=== PATIENT | male | born 1965 | race Caucasian/White ===

== ENCOUNTER 2019-04-22 12:56 | Inpatient (IN) | payer OTHER, SELFPAY ==
[~2019-04-22 12:56] MED LIST: ISOVUE-370 76%-LOCM 1 ML ONE
[2019-04-22 13:47] LABS: #Basophils 0.1 thou/uL (0.0-0.2); #Eosinphils 0.1 thou/uL (0.0-0.7); #Lymphocytes 2.2 thou/uL (1.20-3.40); #Monocytes 0.7 thou/uL (0.11-0.59); %Basophils 1.2 % (0.0-1.0); %Eosinophils 0.7 % (0.0-10.0); %Lymphocytes 27.6 % (21.0-51.0); %Monocytes 8.2 % (0.0-10.0); %Neutrophils 62.3 % (42.0-75.0); Hemoglobin 15.3 g/dL (14.0-18.0); Mean Corpuscular HGB CONC 33.7 g/dL (32.0-36.0); Mean Corpuscular Hemoglobin 30.8 pg (27.0-31.0); Mean Corpuscular Volume 91.3 fL (78.0-98.0); Mean Platelet Volume 7.7 fL (7.4-10.4); Platelet Count 177 thou/uL (130-400); RBC Distribution Width 13.3 % (11.5-14.5); Red Blood Cell (RBC) Count 4.98 mill/uL (4.70-6.10)
[2019-04-22 14:11] LABS: ALT (SGPT) 35 U/L (8-55); AST (SGOT) 26 U/L (5-34); Alkaline Phosphatase 58 U/L (40-110); Anion Gap 16 mmol/L (10-20); BUN (Urea Nitrogen) 14 mg/dL (8.4-25.7); Bilirubin, Total 1.3 mg/dL (0.2-1.2); Calc. Creatinine Clearance 0 mL/min (70-130); Calcium 9.1 mg/dL (7.8-10.44); Carbon Dioxide 19 mmol/L (22-29); Chloride 103 mmol/L (98-107); Estimated GFR-MDRD 64; Globulin 3.4 g/dL (2.4-3.5); Glucose 98 mg/dL (70-105); Potassium 4.1 mmol/L (3.5-5.1); Protein, Total 7.4 g/dL (6.0-8.3); Sodium 134 mmol/L (136-145)
--- NOTE | 2019-04-22 14:22 | CT ---
CT ANGIOGRAM THORAX WITH CONTRAST: (CTA pulmonary angiogram) DATE: 04/22/2019 HISTORY: 53-year-old male with dyspnea TECHNIQUE: IV injection of iodinated contrast. Scan acquisition timing attempted to coincide with iodinated contrast bolus reaching maximal density in pulmonary arteries. 3-D MIP reconstructions. FINDINGS: Pulmonary thromboembolism: None. Lungs: No consolidation or edema. Pneumothorax: None. Pleural effusion: None. Heart: Mild cardiomegaly, including left ventricular chamber dilation. Thoracic aorta: No aneurysm. No contrast within the lumen: Unable to evaluate for dissection. IMPRESSION: 1. No pulmonary thromboembolism. 2. Cardiomegaly.
[2019-04-22] MEDS ORDERED: Nitroglycerin 2% Ointment 1 INCH/1 GM Packet ONE (14:36)
[2019-04-22] MEDS ORDERED: Aspirin Chewable 81 MG TAB ONE ×2 (14:36→15:43)
[2019-04-22] MEDS ORDERED: Furosemide 40 MG/4 ML VIAL ONE (15:43)
[2019-04-22] MEDS: Furosemide 40 MG/4 ML VIAL SLOW IVP SCH ×2 (22:24→23:29)
[2019-04-23] MEDS ORDERED: Ondansetron ODT 4 MG TAB PO PRN (02:13)
[2019-04-23] MEDS ORDERED: Ondansetron PF 4 MG/2 ML Vial IVP PRN (02:13)
[2019-04-23] MEDS ORDERED: Senokot S 8.6-50 MG TAB PO PRN (02:13)
[2019-04-23] MEDS ORDERED: Calcium Carbonate 500 MG ChewTAB PO PRN (02:13)
[2019-04-23] MEDS ORDERED: Acetaminophen 325 MG TAB PO PRN (02:13)
--- NOTE | 2019-04-23 02:32 | HP ---
CHIEF COMPLAINT: Shortness of breath. PRIMARY CARE PHYSICIAN: None. HISTORY OF PRESENT ILLNESS: The patient is a 53-year-old male with hypertension, presented to the emergency room with worsening shortness of breath that is ongoing for the last few months. Over the last 1 to 2 weeks, the shortness of breath got worse. He now gets short of breath on mild exertion. He is also unable to lie down flat. He noticed bilateral lower extremity swelling. He denies any history of congestive heart failure. No chest pain, palpitations, lightheadedness, dizziness, or syncope reported. He denies previous cardiac workup. He states that 9 years ago, he had some viral infection of his heart. He does not take any medications at home. PAST MEDICAL HISTORY: 1. Hypertension. 2. Viral infection of the heart 9 years ago per patient report. PAST SURGICAL HISTORY: Reviewed with the patient and none. ALLERGIES: THE PATIENT IS ALLERGIC TO PENICILLIN AND SULFA. CURRENT HOME MEDICATIONS: Reviewed with the patient and none. SOCIAL HISTORY: The patient currently lives at home with his family. He has a history of heavy alcohol abuse in the past. Over the last 1 month, he has been drinking socially. He denies any smoking or drug use. FAMILY HISTORY: Negative for heart disease. REVIEW OF SYSTEMS: All other review of systems was reviewed and were found negative. PHYSICAL EXAMINATION: VITAL SIGNS: Temperature 99.4, respirations of 18, pulse rate of 127 on ER arrival, blood pressure of 163/114, O2 saturation 98% on room air. GENERAL: A 53-year-old male, in no apparent distress. His shortness of breath has improved with IV Lasix in the emergency room. HEENT: Head, atraumatic and normocephalic. Sclerae anicteric. Moist mucous membranes. No oral lesion. NECK: Supple. No JVD appreciated. No carotid bruit. LUNGS: Showed diminished air entry at bilateral bases. No significant accessory muscle use. There was scattered rhonchi. No rales. HEART: S1, S2 present. Regular rate and rhythm. No rubs or gallops. No heaves or pulsation. ABDOMEN: Soft, obese. Bowel sounds present. No rebound or guarding. No costovertebral angle tenderness. EXTREMITIES: 1+ edema in bilateral lower extremities. SKIN: Warm and dry. LYMPH NODES: No palpable lymph nodes in the neck. PERIPHERAL VASCULAR: Radial pulses palpable bilaterally. MUSCULOSKELETAL: No joint swelling or tenderness. SKIN: Warm and dry. LABORATORY FINDINGS: BNP 1637. Troponin negative. Total bilirubin 1.3. Sodium 134, potassium 4.1. WBC 8.0 with hemoglobin 15.3, platelet 177. CT angiogram of the chest by my review was negative for pulmonary embolism. It showed cardiomegaly. EKG by my review showed sinus tachycardia with left axis deviation, left anterior fascicular block with nonspecific ST-T wave changes. Medication administered in the emergency room, Lasix 40 mg IV and aspirin 324 mg x1. IMPRESSION: 1. Acute congestive heart failure exacerbation (new onset). 2. Hypertension, uncontrolled. 3. Obesity with a BMI of 37.3. 4. Chronic kidney disease, stage 2. 5. Hyponatremia. 6. Abnormal LFTs probably secondary to passive hepatic congestion. 7. History of alcohol abuse in the past. 8. Sulfa and penicillin allergy. PLAN: The patient will be monitored on the telemetry unit. Echocardiogram will be obtained. We will add fluid restriction. We will check labs on a daily basis. We will add low-dose beta blockers. Heart failure education. Plan of care was discussed with the patient in detail. He stated understanding. Job ID: [id number]
[2019-04-23 05:30] LABS: Troponin I 0.013 ng/mL (< 0.028)
[2019-04-23] MEDS: Furosemide 20 MG/2 ML VIAL SLOW IVP SCH ×2 (05:37→14:07)
[2019-04-23 05:43] LABS: Anion Gap 14 mmol/L (10-20); BUN (Urea Nitrogen) 14 mg/dL (8.4-25.7); Calc. Creatinine Clearance 132 mL/min (70-130); Calcium 8.7 mg/dL (7.8-10.44); Carbon Dioxide 23 mmol/L (22-29); Chloride 103 mmol/L (98-107); Estimated GFR-MDRD 72; Glucose 80 mg/dL (70-105); Potassium 3.8 mmol/L (3.5-5.1); Sodium 136 mmol/L (136-145)
[2019-04-23] MEDS ORDERED: Carvedilol 3.125 MG TAB PO SCH (09:00)
[2019-04-23] MEDS: Lisinopril 2.5 MG TAB PO SCH (09:17)
[2019-04-23] MEDS: Aspirin 325 MG TAB PO SCH (09:18)
[2019-04-23] MEDS: Enoxaparin Sodium 40 MG/0.4 ML SYRINGE SC SCH (09:18)
--- NOTE | 2019-04-23 15:46 | PDOC.HOSPP ---
- Subjective Encounter Date: 04/23/19 Encounter Time: 15:44 Subjective: Mr. Keys was seen today in follow-up of new onset CHF. He does not have any complaints. He wants to go home. - Objective Vital Signs & Weight: Vital Signs (12 hours) Temp Pulse Resp BP Pulse Ox 04/23/19 11:46 98.1 F 91 16 108/89 97 04/23/19 09:17 100 04/23/19 08:00 93 L 04/23/19 07:35 98.5 F 100 16 115/100 H 93 L 04/23/19 04:00 97.6 F 96 20 111/89 95 Weight Weight 256 lb 6 oz I&O: 04/22/19 04/23/19 04/24/19 06:59 06:59 06:59 Output Total 1300 650 Balance -1300 -650 Result Diagrams: 04/22/19 13:37 04/23/19 04:56 Hospitalist ROS - Medication Medications: Active Medications Generic Name Dose Route Start Last Admin Trade Name Krystle PRN Reason Stop Dose Admin Aspirin 325 mg 04/23/19 09:00 04/23/19 09:18 Aspirin PO 325 mg DAILY EDER Administration Enoxaparin Sodium 40 mg 04/23/19 09:00 04/23/19 09:18 Lovenox SC 40 mg 0900 EDER Administration Furosemide 20 mg 04/23/19 06:00 04/23/19 14:07 Lasix SLOW IVP 20 mg 0600,1400 EDER Administration Lisinopril 2.5 mg 04/23/19 09:00 04/23/19 09:17 Zestril PO 2.5 mg DAILY EDER Administration Sodium Chloride 10 ml 04/23/19 02:13 04/23/19 05:38 Flush - Normal Saline IVF 10 ml PRN PRN Administration Saline Flush - Exam Eye: PERRL, anicteric sclera Heart: RRR, no murmur (+ S4), no rubs, normal peripheral pulses Respiratory: CTAB, no wheezes, no rales, no ronchi, normal chest expansion, no tachypnea, normal percussion Gastrointestinal: soft, non-tender, non-distended, normal bowel sounds, no palpable masses, no hepatomegaly, no splenomegaly Extremities: no cyanosis, no clubbing, no edema Hosp A/P (1) Acute heart failure Code(s): I50.9 - HEART FAILURE, UNSPECIFIED Status: Acute Qualifiers: Heart failure type: unspecified Qualified Code(s): I50.9 - Heart failure, unspecified - Plan * Acute CHF- ? type- awaiting Echo result * Continue Carvediolol, and Lisinopril *
[2019-04-23] MEDS: Carvedilol 3.125 MG TAB PO SCH (17:25)
[2019-04-24 05:13] VITALS: BMI 36.1
[2019-04-24 05:34] LABS: Anion Gap 13 mmol/L (10-20); BUN (Urea Nitrogen) 13 mg/dL (8.4-25.7); Calc. Creatinine Clearance 118 mL/min (70-130); Carbon Dioxide 25 mmol/L (22-29); Chloride 104 mmol/L (98-107); Estimated GFR-MDRD 66; Glucose 91 mg/dL (70-105); Potassium 3.7 mmol/L (3.5-5.1); Sodium 138 mmol/L (136-145)
[2019-04-24] MEDS: Furosemide 20 MG/2 ML VIAL SLOW IVP SCH (06:00)
[2019-04-24] MEDS: Enoxaparin Sodium 40 MG/0.4 ML SYRINGE SC SCH (08:53)
[2019-04-24] MEDS: Lisinopril 2.5 MG TAB PO SCH (08:53)
[2019-04-24] MEDS: Aspirin 325 MG TAB PO SCH (08:53)
[2019-04-24] MEDS: Carvedilol 3.125 MG TAB PO SCH ×2 (08:53→16:14)
--- NOTE | 2019-04-24 15:04 | PDOC.HOSPP ---
- Subjective Encounter Date: 04/24/19 Encounter Time: 15:02 Subjective: Mr. Keys was seen today in follow-up of CHF. He does not have any complaints. - Objective Vital Signs & Weight: Vital Signs (12 hours) Temp Pulse Resp BP Pulse Ox 04/24/19 11:22 97.6 F 100 22 H 120/96 H 95 04/24/19 08:53 105 H 04/24/19 08:48 96 04/24/19 08:35 118/96 H 04/24/19 07:35 98.9 F 105 H 20 96 04/24/19 04:00 97.8 F 86 16 98/85 92 L Weight Weight 251 lb 14.4 oz I&O: 04/23/19 04/24/19 04/25/19 06:59 06:59 06:59 Intake Total 1252 Output Total 6497 8837 Balance -7277 -5342 Result Diagrams: 04/22/19 13:37 04/24/19 04:45 Hospitalist ROS - Medication Medications: Active Medications Generic Name Dose Route Start Last Admin Trade Name Freq PRN Reason Stop Dose Admin Aspirin 325 mg 04/23/19 09:00 04/24/19 08:53 Aspirin PO 325 mg DAILY EDER Administration Carvedilol 3.125 mg 04/23/19 17:00 04/24/19 08:53 Coreg PO 3.125 mg BID-WM EDER Administration Enoxaparin Sodium 40 mg 04/23/19 09:00 04/24/19 08:53 Lovenox SC 40 mg 0900 EDER Administration Lisinopril 2.5 mg 04/23/19 09:00 04/24/19 08:53 Zestril PO Not Given DAILY EDER Sodium Chloride 10 ml 04/23/19 02:13 04/23/19 05:38 Flush - Normal Saline IVF 10 ml PRN PRN Administration Saline Flush - Exam Eye: PERRL, anicteric sclera Heart: RRR, no murmur, no gallops, no rubs, normal peripheral pulses Respiratory: CTAB, no wheezes, no rales, no ronchi, normal chest expansion Gastrointestinal: soft, non-tender, non-distended, normal bowel sounds, no palpable masses, no hepatomegaly, no splenomegaly Extremities: no cyanosis, no clubbing, no edema Hosp A/P (1) Acute heart failure Code(s): I50.9 - HEART FAILURE, UNSPECIFIED Status: Acute Qualifiers: Heart failure type: unspecified Qualified Code(s): I50.9 - Heart failure, unspecified - Plan * Clinically stable, He continues with intermittent ectopy * Acute CHF- ? type- awaiting Echo result- he is clinically euvolemic * Continue Carvediolol, and Lisinopril * Will change Lasix to prn
--- NOTE | 2019-04-25 08:46 | PDOC.HOSPP ---
- Subjective Encounter Date: 04/25/19 Encounter Time: 08:44 Subjective: Mr. Keys was seen today in follow-up of CHF exacerbation. He does not have any complaints this morning. - Objective Vital Signs & Weight: Vital Signs (12 hours) Temp Pulse Resp BP Pulse Ox 04/25/19 07:45 98.9 F 92 20 107/85 97 04/25/19 04:00 97.7 F 91 18 110/88 97 Weight Weight 254 lb 6.4 oz I&O: 04/24/19 04/25/19 04/26/19 06:59 06:59 06:59 Intake Total 1252 1300 Output Total 3825 950 Balance -2573 350 Result Diagrams: 04/22/19 13:37 04/24/19 04:45 Hospitalist ROS - Medication Medications: Active Medications Generic Name Dose Route Start Last Admin Trade Name Freq PRN Reason Stop Dose Admin Aspirin 325 mg 04/23/19 09:00 04/24/19 08:53 Aspirin PO 325 mg DAILY EDER Administration Carvedilol 3.125 mg 04/23/19 17:00 04/24/19 16:14 Coreg PO 3.125 mg BID-WM EDER Administration Enoxaparin Sodium 40 mg 04/23/19 09:00 04/24/19 08:53 Lovenox SC 40 mg 0900 EDER Administration Lisinopril 2.5 mg 04/23/19 09:00 04/24/19 08:53 Zestril PO Not Given DAILY EDER Sodium Chloride 10 ml 04/23/19 02:13 04/23/19 05:38 Flush - Normal Saline IVF 10 ml PRN PRN Administration Saline Flush - Exam Eye: PERRL, anicteric sclera Heart: RRR (mildly tachycardic), no murmur, no gallops, no rubs, normal peripheral pulses Respiratory: CTAB, no wheezes, no rales, no ronchi, normal chest expansion Gastrointestinal: soft, non-tender, non-distended, normal bowel sounds, no palpable masses, no hepatomegaly Extremities: no cyanosis, no clubbing, no edema Hosp A/P (1) Acute heart failure Code(s): I50.9 - HEART FAILURE, UNSPECIFIED Status: Acute Qualifiers: Heart failure type: unspecified Qualified Code(s): I50.9 - Heart failure, unspecified (2) Acute systolic congestive heart failure, NYHA class 2 Code(s): I50.21 - ACUTE SYSTOLIC (CONGESTIVE) HEART FAILURE Status: Acute - Plan * Acute systolic heart failure CHF- his EF was 10-15% * Discussed with the patient- will consult Cardiology * Continue Carvediolol, and Lisinopril * Lasix is now PRN
[2019-04-25] MEDS: Carvedilol 3.125 MG TAB PO SCH ×2 (09:23→17:46)
[2019-04-25] MEDS: Lisinopril 2.5 MG TAB PO SCH (09:23)
[2019-04-25] MEDS: Enoxaparin Sodium 40 MG/0.4 ML SYRINGE SC SCH (09:24)
[2019-04-25] MEDS: Aspirin 325 MG TAB PO SCH (09:24)
[2019-04-25] MEDS ORDERED: Communication Order-Pharmacy FS SCH (10:45)
--- NOTE | 2019-04-25 11:03 | CON ---
DATE OF CONSULTATION: HISTORY OF PRESENT ILLNESS: A 53-year-old gentleman with a history of cardiomyopathy, who presents with increasing dyspnea and lower extremity swelling. The patient states that around 2012, he suffered a myocardial infarction, and he was seeing Dr. Stuart Borges. He underwent a cardiac catheterization. He was apparently found to have normal coronary arteries with left ventricular dysfunction. The patient has been doing reasonably well until recently. He started noting an increasing dyspnea and lower extremity swelling. The patient denies having any chest discomfort. PAST MEDICAL HISTORY: Significant for, 1. Cardiomyopathy. 2. History of myocardial infarction. PAST SURGICAL HISTORY: None. MEDICATIONS: On admission, none. SOCIAL HISTORY: He is a nonsmoker. He is a former user of heavy use of alcohol. FAMILY HISTORY: No strong family history of heart disease. ALLERGIES: HE IS ALLERGIC TO PENICILLIN AND SULFA DRUGS. REVIEW OF SYSTEMS: Ten-point system otherwise unremarkable. PHYSICAL EXAMINATION: GENERAL: Obese gentleman, in no acute distress. VITAL SIGNS: BLOOD pressure 107/85. NECK: No jugular venous distention. LUNGS: Clear to auscultation. HEART: Regular rate and rhythm. Normal S1, S2. No murmurs. ABDOMEN: Distended. EXTREMITIES: Showed no edema. VASCULAR: Radial pulses are 2+. LABORATORY RESULTS: Sodium 138, potassium 3.7, chloride 104, bicarbonate 25, BUN 13, creatinine 1.1. Troponin 0.013. His white blood cell count is 8.0, hemoglobin 15.3, hematocrit 44.4, platelets 177. IMAGING STUDIES: His EKG revealed sinus tachycardia, left anterior fascicular block, poor R-wave progression. Echocardiogram revealed severe decreased left ventricular systolic function with an estimated ejection fraction 15% to 20%. IMPRESSION: 1. Congestive heart failure. 2. Cardiomyopathy. 3. Ventricular tachycardia. 4. History of ethanol abuse. This gentleman presents with congestive heart failure. At this time, we will diurese the patient. The patient has been treated with Lasix. At this time, I would highly recommend this patient be placed on Entresto and Coreg. I would also recommend repeat cardiac catheterization. The risks of the procedure including SD, bleeding, stroke, cardiac arrhythmia, and cardiac have been explained. The patient understands these risks and wished to proceed. PLAN: 1. Proceed with cardiac catheterization. 2. Start Entresto. 3. EP consultation for ventricular tachycardia. Job ID: [id number]
[2019-04-25] MEDS ORDERED: Lidocaine 1% (PF) 30 ML VIAL ONE (13:49)
[2019-04-25] MEDS ORDERED: Midazolam HCl 2 mg/2 ml Vial ONE (14:38)
[2019-04-25] MEDS ORDERED: Metoprolol Tartrate 5 MG/5 ML VIAL ONE (14:43)
[2019-04-25] MEDS ORDERED: Sodium Chloride 0.9% 1,000 ML IV SCH (16:45)
[2019-04-25] MEDS ORDERED: Iopamidol 370 76% 50 ML VIAL FS ONE (20:45)
[2019-04-25] MEDS ORDERED: Iopamidol 370 76% 100 ML VIAL ONE (20:45)
[2019-04-26] MEDS ORDERED: Spironolactone 25 MG TAB PO SCH (09:00)
[2019-04-26] MEDS ORDERED: Carvedilol 3.125 MG TAB PO SCH (09:00)
[2019-04-26] MEDS ORDERED: Amiodarone 200 MG TAB PO SCH (13:00)
[2019-04-26] MEDS: Aspirin 325 MG TAB PO SCH (14:31)
[2019-04-26] MEDS: Enoxaparin Sodium 40 MG/0.4 ML SYRINGE SC SCH (14:34)
[2019-04-26] MEDS: Carvedilol 3.125 MG TAB PO SCH ×2 (14:41→18:04)
--- NOTE | 2019-04-26 16:42 | PDOC.HOSPP ---
- Subjective Encounter Date: 04/26/19 Encounter Time: 16:40 Subjective: Ms. Keys was seen today in follow-up of new onset CHF. He does not have any complaints. - Objective Vital Signs & Weight: Vital Signs (12 hours) Temp Pulse Resp BP Pulse Ox 04/26/19 08:10 97.9 F 99 18 121/98 H 95 04/26/19 07:40 95 Weight Weight 260 lb I&O: 04/25/19 04/26/19 04/27/19 06:59 06:59 06:59 Intake Total 1300 Output Total 950 900 Balance 350 -900 Result Diagrams: 04/22/19 13:37 04/24/19 04:45 Hospitalist ROS - Medication Medications: Active Medications Generic Name Dose Route Start Last Admin Trade Name Freq PRN Reason Stop Dose Admin Aspirin 325 mg 04/23/19 09:00 04/26/19 14:31 Aspirin PO 325 mg DAILY EDER Administration Enoxaparin Sodium 40 mg 04/23/19 09:00 04/26/19 14:34 Lovenox SC 40 mg 0900 EDER Administration Sodium Chloride 10 ml 04/23/19 02:13 04/23/19 05:38 Flush - Normal Saline IVF 10 ml PRN PRN Administration Saline Flush - Exam Eye: PERRL, anicteric sclera Heart: RRR, no murmur, no gallops, no rubs, normal peripheral pulses Respiratory: CTAB, no wheezes, no rales, no ronchi, normal chest expansion, no tachypnea Gastrointestinal: soft, non-tender, non-distended, normal bowel sounds, no palpable masses, no hepatomegaly, no splenomegaly Extremities: no cyanosis, no clubbing, no edema Hosp A/P (1) Acute heart failure Code(s): I50.9 - HEART FAILURE, UNSPECIFIED Status: Acute Qualifiers: Heart failure type: unspecified Qualified Code(s): I50.9 - Heart failure, unspecified (2) Acute systolic congestive heart failure, NYHA class 2 Code(s): I50.21 - ACUTE SYSTOLIC (CONGESTIVE) HEART FAILURE Status: Acute - Plan * Acute systolic heart failure CHF- his EF was 10-15% * He is s/p Cardiac cath- and there was no evidence of coronary artery disease * Continue Carvediolol, Lisinopril was discontinued, and Entresto started * Ventricular arrhythmias- he has been started on Amiodarone * Lasix PRN
[2019-04-26] MEDS: Amiodarone 200 MG TAB PO SCH ×2 (18:04→21:38)
--- NOTE | 2019-04-26 18:34 | CON ---
DATE OF CONSULTATION: 04/26/2019 HISTORY OF PRESENT ILLNESS: I am seeing Mr. Keys at our [facility] Telemetry Floor as an Electrophysiology bi consultant regarding his ventricular tachyarrhythmias and dilated cardiomyopathy. His problems are; 1. Chronic systolic congestive heart failure with dilated cardiomyopathy. a. Current admission with acute heart failure exacerbation. b. Severely reduced left ventricular ejection fraction of 15% to 20% on echo, 04/23/2019. c. Left heart catheterization on 04/22/2019, showed normal coronary arteries. Left ventricular ejection fraction about 10%. d. Remote history of mild left ventricular dysfunction on echo in 2010, revealed left ventricular ejection fraction of 45% to 50%. e. History of viral infection 9 years ago. 2. History of hypertension. ALLERGIES: 1. PENICILLIN. 2. SULFA. MEDICATIONS: Medications at home included none. SUBJECTIVE: Mr. Keys is here admitted on the , with signs of fluid overload and acute heart failure. He has been experiencing this for last couple of months. He does not seek medical attention up until now. For last 1 to 2 weeks, his dyspnea gets worse. He gets very short of breath with exertion. He is unable to lay flat, and his lower extremities were swelling up. He denies chest pains. No fever, chills, or cough. He was evaluated by Dr. Raphael with an echo and a heart catheterization demonstrating normal coronary arteries, but severely reduced LVEF. He has been diuresed and is feeling better now, able to lay flat, feels somewhat back to normal. On telemetry, there are some runs of nonsustained wide-complex arrhythmia. I was consulted for further management of his arrhythmia status. REVIEW OF SYSTEMS: Rest of 12-point review of systems is otherwise unremarkable. PAST MEDICAL HISTORY: As above. He has had issues with dilated cardiomyopathy back in 2005. Last documented echocardiogram prior to this admission was in 2010, at 45% to 50%. He has not been following up with a german teacher in the interim since 2011. He was not on any medications. 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 He has history of heavy alcohol abuse in the past, but moderated the last month. Denies smoking or drug use. FAMILY HISTORY: Negative for heart disease. OBJECTIVE DATA: VITAL SIGNS: Blood pressure 120/98, heart rate 99, respirations 18, temperature 97.9 degrees Fahrenheit. PHYSICAL EXAMINATION: GENERAL: Alert and oriented man with elevated BMI, in no apparent distress. NECK: Supple. Jugular veins are not distended. CHEST: Coarse. No crackles. HEART: Sounds are regular to rate and rhythm. No murmur or gallop. ABDOMEN: Benign. Bowel sounds positive. EXTREMITIES: Lower extremities without edema, clubbing, or cyanosis. NEUROLOGIC: The patient is nonfocal. MUSCULOSKELETAL: Without joint swelling or deformity. SKIN: Without rash. DATABASE: EKGs reviewed initially revealing sinus rhythm, rate of 122 beats per minute. QRS is [address]-T changes. Left anterior fascicular block. Left atrial enlargement is seen. The subsequent EKGs are similar. Telemetry strips do reveal runs of wide-complex arrhythmia. Impression is likely ventricular tachycardia. LABORATORY DATA: White cell count is 8.0, hemoglobin 15.3, platelet count is 177. Sodium 138, potassium 3.7, BUN is 13, creatinine is 1.16. BNP is 1637. Troponin I of 0.01 and 0.013 consecutively. TSH is 1.4789, in normal range. Echocardiogram again reveals moderate left atrial enlargement, mild mitral regurgitation and tricuspid regurgitation, LVEF 15% to 20%, mild enlargement of left ventricular size. ASSESSMENT AND PLAN: Mr. Keys is a very pleasant 53-year-old man with history of cardiomyopathy, although in the past, it was only to a mild degree. He has not been on any heart failure medications and was not under attention for german teacher for last 7 years. Now, he was admitted with a full-blown heart failure with fluid overload, and he has nonsustained ventricular arrhythmias on the monitor. He also has severely reduced left ventricular ejection fraction with normal coronary arteries on the workup. My plan is: 1. His ventricular arrhythmia risk is clearly very high. On the other hand, he has not been on any heart failure medication prior to admit. I think it is reasonable to give him a trial of optimized heart failure management as Dr. Raphael already initiated including Entresto, likely beta-peri as tolerated. His left ventricular systolic function likely needs to be re-assessed in about 3 months on optimal management, and if left ventricular ejection fraction is less than or equal to 35%, I would consider a prophylactic implantable cardioverter-defibrillator implant at that time. 2. Nonsustained ventricular arrhythmias. So far, minimally symptomatic, but due to frequency, it is reasonable to consider suppression with amiodarone therapy. Risks and benefits detailed to the patient's family. 3. History of EtOH abuse. Cessation of any EtOH consumption is necessary. 4. He would likely benefit from LifeVest therapy on discharge. Discussed with Dr. Raphael. Thank you again for letting me to participate in the care of this patient. Job ID: [id number] [facility]
[2019-04-26] MEDS ORDERED: Sacubitril 24.5 MG/Valsartan 25.5 MG TABLET PO SCH (21:00)
[2019-04-26] MEDS: Sacubitril 24.5 MG/Valsartan 25.5 MG TABLET PO SCH (21:49)
[2019-04-27] MEDS ORDERED: Spironolactone 25 MG TAB PO SCH (08:00)
[2019-04-27] MEDS ORDERED: Amiodarone 200 MG TAB PO SCH ×2 (09:00)
[2019-04-27] MEDS: Aspirin 325 MG TAB PO SCH (09:07)
[2019-04-27] MEDS: Carvedilol 3.125 MG TAB PO SCH (09:07)
[2019-04-27] MEDS: Enoxaparin Sodium 40 MG/0.4 ML SYRINGE SC SCH (09:08)
[2019-04-27] MEDS: Sacubitril 24.5 MG/Valsartan 25.5 MG TABLET PO SCH (09:09)
[2019-04-27 09:48] VITALS: TEMP 97.4
[2019-04-27 11:42] VITALS: BP 114/80
--- NOTE | 2019-04-27 12:27 | PDOC.HOSPP ---
- Subjective Encounter Date: 04/27/19 Encounter Time: 12:25 Subjective: Mr. Keys was seen today in follow-up of new onset CHF. He does not have any complaints. - Objective Vital Signs & Weight: Vital Signs (12 hours) Temp Pulse Pulse Pulse Resp BP BP 04/27/19 11:40 97.4 F L 91 16 04/27/19 11:25 83 77 114/80 101/78 04/27/19 08:00 97.4 F L 81 17 04/27/19 04:00 97.3 F L 73 18 BP BP Pulse Ox Pulse Ox Pulse Ox 04/27/19 11:40 114/80 99 04/27/19 11:25 100 100 04/27/19 08:00 104/76 98 04/27/19 04:00 94/65 95 Weight Weight 258 lb I&O: 04/26/19 04/27/19 04/28/19 06:59 06:59 06:59 Intake Total 500 Output Total 900 Balance -900 500 Result Diagrams: 04/22/19 13:37 04/24/19 04:45 Hospitalist ROS - Medication Medications: Active Medications Generic Name Dose Route Start Last Admin Trade Name Freq PRN Reason Stop Dose Admin Amiodarone HCl 200 mg 04/27/19 09:00 04/27/19 09:07 Cordarone PO 200 mg BID EDER Administration Aspirin 325 mg 04/23/19 09:00 04/27/19 09:07 Aspirin PO 325 mg DAILY EDER Administration Carvedilol 6.25 mg 04/26/19 17:00 04/27/19 09:07 Coreg PO 6.25 mg BID-WM EDER Administration Enoxaparin Sodium 40 mg 04/23/19 09:00 04/27/19 09:08 Lovenox SC 40 mg 0900 EDER Administration Sacubitril/Valsartan 1 tab 04/26/19 21:00 04/27/19 09:09 Entresto 24.5 Mg-25.5 Mg Tablet PO 1 tab BID EDER Administration Sodium Chloride 10 ml 04/23/19 02:13 04/23/19 05:38 Flush - Normal Saline IVF 10 ml PRN PRN Administration Saline Flush Spironolactone 25 mg 04/27/19 08:00 04/27/19 09:08 Aldactone PO 25 mg QAM-WM EDER Administration - Exam Eye: PERRL Heart: RRR, no murmur, no gallops, no rubs, normal peripheral pulses Respiratory: CTAB, no wheezes, no rales, no ronchi, normal chest expansion Gastrointestinal: soft, non-tender, non-distended, normal bowel sounds, no palpable masses, no hepatomegaly Extremities: no edema Hosp A/P (1) Acute heart failure Code(s): I50.9 - HEART FAILURE, UNSPECIFIED Status: Acute Qualifiers: Heart failure type: unspecified Qualified Code(s): I50.9 - Heart failure, unspecified (2) Acute systolic congestive heart failure, NYHA class 2 Code(s): I50.21 - ACUTE SYSTOLIC (CONGESTIVE) HEART FAILURE Status: Acute - Plan * Acute systolic heart failure CHF- his EF was 10-15% * He has the Life-vest placed * Stable for discharge home
== END 2019-04-27 15:00 | disposition home or self-care (01) | DRG 286 ==
LOC: ERS 12:56 → 2SE 18:40 → 2NO 04-25 20:06
PROVIDERS: ADMIT Internal Medicine; ATTEND Internal Medicine
PROC: 4A023N7 Measurement of Cardiac Sampling and Pressure, Left Heart, Percutaneous Approach (ICD-10-PCS; principal; 2019-04-25)
PROC: B2111ZZ Fluoroscopy of Multiple Coronary Arteries using Low Osmolar Contrast (ICD-10-PCS; 2019-04-25)
PROC: B2151ZZ Fluoroscopy of Left Heart using Low Osmolar Contrast (ICD-10-PCS; 2019-04-25)
DX: I13.0 Hypertensive heart and chronic kidney disease with heart failure and stage 1 through stage 4 chronic kidney disease, or unspecified chronic kidney disease (principal); I50.21 Acute systolic (congestive) heart failure; E87.1 Hypo-osmolality and hyponatremia; I47.0 Re-entry ventricular arrhythmia; E66.9 Obesity, unspecified; N18.2 Chronic kidney disease, stage 2 (mild); I42.9 Cardiomyopathy, unspecified; Z88.0 Allergy status to penicillin; Z88.2 Allergy status to sulfonamides; Z68.37 Body mass index [BMI] 37.0-37.9, adult; I25.2 Old myocardial infarction; Z87.891 Personal history of nicotine dependence
CPT/HCPCS: 36415; 71045; 71275; 80048; 80053; 83735; 83880; 84443; 84484; 85025; 93005; 93010; 93306; 93458; 93798; 96374; 99152; C1769; J1644; J1650; J1940; J2001; J2250; Q9966; Q9967